=== PATIENT | male | born 1945 | race Caucasian/White ===

== ENCOUNTER 2021-09-01 16:33 | Observation (INO) | payer MEDICARE, BC ==
[2021-09-01 17:52] LABS: CHLORIDE,CL 101 mmol/L (98-107); SODIUM,NA 134 mmol/L (136-145)
[2021-09-01 17:53] LABS: ANION GAP 10.5 mmol/L (5-15)
[2021-09-01] MEDS ORDERED: diphenhydrAMINE 25 MG Cap PO PRN (18:39)
[2021-09-01] MEDS ORDERED: Acetaminophen 325 MG Tab PO PRN (18:39)
[2021-09-01] MEDS ORDERED: Omeprazole 20 MG Cap.CR PO PRN (19:00)
[2021-09-01] MEDS ORDERED: atorvaSTATin 10 MG Tab PO SCH (20:00)
[2021-09-01] MEDS ORDERED: Latanoprost 0.005% Ophth Soln 2.5 ML Bottle EYEBOTH SCH (20:00)
[2021-09-01] MEDS: Timolol Maleate 0.5% Ophth Soln 5 ML Bottle EYEBOTH SCH (20:31)
[2021-09-01] MEDS: Oxymetazoline 0.05% Nasal Spray 30 ML Bottle NAS PRN (21:30)
[2021-09-02] MEDS: Oxymetazoline 0.05% Nasal Spray 30 ML Bottle NAS PRN (06:19)
[2021-09-02 07:00] LABS: CHLORIDE,CL 100 mmol/L (98-107); SODIUM,NA 134 mmol/L (136-145)
[2021-09-02] MEDS ORDERED: Fish Oil/Omega-3 Fatty Acids 1 Gm Cap PO SCH (08:00)
[2021-09-02] MEDS ORDERED: LECITHIN 1200 MG PO SCH (08:00)
[2021-09-02] MEDS ORDERED: LYCOPENE 10 MG PO SCH (08:00)
[2021-09-02] MEDS ORDERED: INOSITOL PO SCH (08:00)
[2021-09-02] MEDS ORDERED: Calcium Carbonate 750 MG Tab.Chew PO SCH (08:00)
[2021-09-02] MEDS ORDERED: LUTEIN 10 MG PO SCH (08:00)
[2021-09-02] MEDS ORDERED: Cholecalciferol (Vitamin D3) 25 MCG Tab PO SCH (08:00)
[2021-09-02] MEDS ORDERED: Cyanocobalamin (Vitamin B12) 250 MCG Tab PO SCH (08:00)
[2021-09-02] MEDS ORDERED: Vitamin B Complex Tab PO SCH (08:00)
[2021-09-02] MEDS ORDERED: Aspirin 81 MG Tab.Chew PO SCH (08:00)
[2021-09-02] MEDS ORDERED: LYSINE 500 MG PO SCH (08:00)
[2021-09-02] MEDS ORDERED: Magnesium Oxide 400 MG Tab PO SCH (08:00)
[2021-09-02] MEDS: Timolol Maleate 0.5% Ophth Soln 5 ML Bottle EYEBOTH SCH (08:43)
== END 2021-09-02 12:31 | disposition home or self-care (01) ==
LOC: VM.ED 16:33 → VM.MS 18:26
PROVIDERS: ADMIT Physician Assistant Medical; ATTEND Internal Medicine
DX: G31.2 Degeneration of nervous system due to alcohol (principal); K21.9 Gastro-esophageal reflux disease without esophagitis; F10.11 Alcohol abuse, in remission; E78.2 Mixed hyperlipidemia; R73.03 Prediabetes; E53.8 Deficiency of other specified B group vitamins; Z79.899 Other long term (current) drug therapy; Z79.82 Long term (current) use of aspirin; Z87.891 Personal history of nicotine dependence; Z20.822 Contact with and (suspected) exposure to COVID-19
CPT/HCPCS: 36415; 71046; 80048; 80053; 81001; 82306; 82550; 82607; 83880; 84443; 84484; 85025; 85379; 85652; 86140; 87086; 93005; 93010; 99220; 99285-25; A9270-GY; G0378; U0002

== ENCOUNTER 2024-02-09 13:00 | Emergency (ER) | payer MEDICARE, BC ==
[2024-02-09] MEDS ORDERED: Sodium Chloride 0.9% 10 ML Syringe FLUSH PRN (13:14)
[2024-02-09 13:27] LABS: BASOPHILS ABSOLUTE AUTO 0.1 x10^3/uL (0.0-0.2); BASOPHILS PERCENT AUTO 0.5 % (0.2-1.2); EOSINOPHILS ABSOLUTE AUTO 0.2 x10^3/uL (0.0-0.5); EOSINOPHILS PERCENT AUTO 1.4 % (0.0-4.0); HEMATOCRIT 45.1 % (40.0-52.0); LYMPHOCYTES ABSOLUTE AUTO 3.5 x10^3/uL (1.0-4.8); LYMPHOCYTES PERCENT AUTO 27.9 % (25.0-50.0); MEAN CORPUSCULAR HEMOGLOBIN 30.8 pg (26.0-32.0); MEAN CORPUSCULAR HGB CONC 35.5 g/dL (32.0-36.0); MEAN CORPUSCULAR VOLUME 86.9 fL (78.0-93.0); MONOCYTES ABSOLUTE AUTO 0.9 x10^3/uL (0.0-0.8); MONOCYTES PERCENT AUTO 7.5 % (2.0-11.0); NEUTROPHILS ABSOLUTE AUTO 7.8 x10^3/uL (1.8-7.7); NEUTROPHILS PERCENT AUTO 61.9 % (50.0-80.0); PLATELET COUNT,PLT 280 x10^3/uL (130-400); RED BLOOD CELL COUNT 5.19 x10^6/uL (4.5-6.0); WHITE BLOOD CELL COUNT,WBC 12.6 x10^3/uL (4.0-10.0)
[2024-02-09 13:48] LABS: PROTHROMBIN TIME 10.2 SEC (8.9-11.5)
[2024-02-09 13:49] LABS: A/G RATIO 0.97; ALANINE AMINOTRANSFERASE,ALT 41 U/L (16-63); ALBUMIN 3.2 g/dL (3.4-5.0); ALKALINE PHOSPHATASE 46 U/L (46-116); AMYLASE 58 U/L (25-115); ASPARTATE AMNIOTRANSFERASE,AST 22 U/L (15-37); BILIRUBIN TOTAL 0.6 mg/dL (0.2-1.0); BLOOD UREA NITROGEN,BUN 10 mg/dL (7-18); CALCIUM 8.9 mg/dL (8.5-10.1); CARBON DIOXIDE,CO2 26 mmol/L (21-32); CHLORIDE,CL 98 mmol/L (98-107); CREATININE 0.8 mg/dL (0.70-1.30); GLUCOSE RANDOM 96 mg/dL (70-99); LIPASE 67 U/L (19-71); MAGNESIUM 1.9 mg/dL (1.8-2.4); POTASSIUM,K 4.3 mmol/L (3.5-5.1); PROTEIN TOTAL,TP 6.5 g/dL (6.4-8.2); SODIUM,NA 132 mmol/L (136-145)
[2024-02-09 13:50] LABS: ANION GAP 12.3 mmol/L (5-15); C-REACTIVE PROTEIN < 0.50 mg/dL (<=0.50); ESTIMATED GFR 89 mL/min (>=60)
[2024-02-09 13:52] LABS: LACTIC ACID 0.9 mmol/L (0.4-2.0)
[2024-02-09 14:13] LABS: APPEARANCE,URINE CLEAR (CLEAR); BILIRUBIN,URINE NEGATIVE (NEGATIVE); COLOR,URINE YELLOW (YELLOW); GLUCOSE,URINE NEGATIVE (NEGATIVE); KETONES,URINE NEGATIVE (NEGATIVE); LEUKOCYTE ESTERASE,URINE NEGATIVE (NEGATIVE); NITRITE,URINE NEGATIVE (NEGATIVE); OCCULT BLOOD,URINE NEGATIVE (NEGATIVE); PROTEIN,URINE NEGATIVE (NEGATIVE); UROBILINOGEN,URINE 0.2 EU/dL (0.2)
[2024-02-09] MEDS: Iopamidol 612 MG/ML 100 ML Bottle IVPUSH ONE (14:26)
[2024-02-09] MEDS ORDERED: Piperacillin/Tazobactam 4.5 GM in Sodium Chloride 0.9% 100 ML IV ONE (15:37)
== END 2024-02-09 16:45 ==
LOC: VM.ED 13:00
DX: N20.0 Calculus of kidney (principal); K55.1 Chronic vascular disorders of intestine; E78.00 Pure hypercholesterolemia, unspecified; K21.9 Gastro-esophageal reflux disease without esophagitis; Z79.82 Long term (current) use of aspirin; Z79.899 Other long term (current) drug therapy
CPT/HCPCS: 74177; 80053; 81003; 82150; 83605; 83690; 83735; 85025; 85610; 85730; 86140; 99284; 99285; Q9967

== ENCOUNTER 2024-03-08 16:07 | Emergency (ER) | payer MEDICARE, BC ==
[2024-03-08] MEDS: Lidocaine 1% 10 ML MDV INJECT ONE (16:50)
== END 2024-03-08 17:11 | disposition home or self-care (01) ==
LOC: VM.ED 16:07
DX: S01.01XA Laceration without foreign body of scalp, initial encounter (principal); S01.81XA Laceration without foreign body of other part of head, initial encounter; K21.9 Gastro-esophageal reflux disease without esophagitis; E78.00 Pure hypercholesterolemia, unspecified; Z79.899 Other long term (current) drug therapy; Z79.82 Long term (current) use of aspirin; W19.XXXA Unspecified fall, initial encounter
CPT/HCPCS: 12002; 12013; 99283; J3490